=== PATIENT | female | born 1990 | race Caucasian/White ===

== ENCOUNTER 2017-10-29 12:05 | Emergency (ER) | payer OTHER ==
[~2017-10-29] VITALS: Ht 177.8 cm; Wt 77.1 kg
[2017-10-29 12:17] VITALS: BP 117/75
--- NOTE | 2017-10-29 13:58 | ED NECK/BACK PAIN COMPLAINT ---
History of Present Illness General Chief Complaint: Neck/Upper Back Pain/Injury Stated Complaint: NECK PAIN Source: patient Exam Limitations: no limitations Vital Signs & Intake/Output Vital Signs & Intake/Output Vital Signs Date Time Temp Pulse Resp B/P B/P Pulse O2 O2 Flow FiO2 Mean Ox Delivery Rate 10/29 1217 98.5 73 18 117/75 99 Room Air Allergies Coded Allergies: Sulfa (Sulfonamide Antibiotics) (ANAPHYLAXIS 10/29/17) Reconcile Medications Cyclobenzaprine HCl 10 MG TABLET 1 TAB PO QPM PRN MUSCLE RELAXOR Ketorolac Tromethamine 10 MG TABLET 1 TAB PO TID PRN PAIN RECEIVED IM IN ER Triage Note: PT TO ED C/O EXACERBATION OF CHRONIC LEFT SIDE NECK PAIN S/P WAKING UP WITH STIFF SORE NECK THIS AM. PAIN RADIATES DOWN TO LEFT SHOULDER. HAD CHEERLEADING INJURY 10 YRS, DENIES RECENT INJURY. TOOK 600 MG ADVIL AT 0930 WITH SOME RELIEF. HAS NUMBNESS TINGELING DOWN LEFT ARM WHICH "IS NOTHING NEW" Triage Nurses Notes Reviewed? yes Onset: Abrupt Duration: constant Timing: single episode today Location: paraspinous muscles Method of Injury: unknown Loss of Consciousness: no loss of consciousness : No Patient currently breastfeeds: No HPI: Patient is a 27-year-old female with a past medical history of chronic neck pain who presents emergency room stating that she woke up this morning with left lateral neck pain and stiffness and has associated symptoms of left arm paresthesia and pain. Patient has taken NSAIDS with no relief of symptoms. Patient denies any mechanism of injury or trauma denies any excessive physical activity yesterday prior to onset of symptoms. Denies any extremity swelling Past History Travel History Traveled to [place] past 21 day No Medical History Any Pertinent Medical History? none Neurological: NONE EENT: NONE Cardiovascular: NONE Respiratory: NONE Gastrointestinal: NONE Hepatic: NONE Renal: NONE Musculoskeletal: NONE Psychiatric: NONE Endocrine: NONE Surgical History Surgical History: non-contributory Psychosocial History What is your primary language Trinidadian Tobacco Use: Current Daily Use Daily Tobacco Use Amount/Type: => 5 Cigarettes daily ETOH Use: occasional use Illicit Drug Use: denies illicit drug use Family History Hx Contributory? No Review of Systems Review of Systems Constitutional: Reports: no symptoms. Eyes: Reports: no symptoms. Ears, Nose, Throat, Mouth: Reports: no symptoms. Respiratory: Reports: no symptoms. Cardiovascular: Reports: no symptoms. Gastrointestinal/Abdominal: Reports: no symptoms. Musculoskeletal: Reports: see HPI, muscle pain, muscle stiffness, neck pain. Skin: Reports: no symptoms. Neurological/Psychological: Reports: see HPI. All Other Systems: Reviewed and Negative Physical Exam Physical Exam General Appearance: no apparent distress, alert, awake Head: atraumatic Eyes: Bilateral: normal appearance. Ears, Nose, Throat, Mouth: moist mucous membrane Neck: normal inspection, supple, paraspinous muscle tender, stiff neck, tender lateral, no midline tenderness Respiratory: no respiratory distress Cardiovascular: regular rate/rhythm Extremities: non-tender, normal range of motion Neurologic/Psych: no motor/sensory deficits, awake, alert, oriented x 3, normal gait Skin: intact, normal color, warm/dry Comments: Extremities bilateral upper extremity and lower extremity myotomes dermatomes DTRs intact Core Measures CVA/TIA Diagnosis: No Progress Differential Diagnosis: C spine injury, carotid dissection, cauda equina syn, herniated disc, myofascial strain, pyelo/UTI, sciatica, spinal cord inj, thoracic outlet syn, T/L spine injury, ureterolithiasis Plan of Care: Due to history of present illness and exam findings patient has concerns of cervical radiculopathy concerns of dvt or spinal abscess or discitis patient denies any iv drug use Departure Departure Disposition: HOME OR SELF CARE Condition: Stable Clinical Impression Primary Impression: Cervical radiculopathy Referrals: Camryn Kyle MD (PCP/Family) Additional Instructions: As discussed begin ICING the area directly 20 minutes every 2 hours, begin the prescription of Toradol for pain AND THE prescription of cyclobenzaprine for muscle relaxation, if no better on Wednesday follow-up with her primary care doctor , prescriptions waiting and [facility]. If symptoms worsen return to emergency room Departure Forms: Customer Survey General Discharge Information Prescriptions: Current Visit Scripts Ketorolac Tromethamine 1 TAB PO TID PRN PAIN #15 TAB RECEIVED IM IN ER Cyclobenzaprine HCl 1 TAB PO QPM PRN MUSCLE RELAXOR #7 TAB
[2017-10-29] MEDS ORDERED: KETOROLAC TROME10 M1 PO (14:37)
[2017-10-29] MEDS ORDERED: CYCLOBENZAPRINE10 M1 PO (14:37)
== END 2017-10-29 14:50 ==
LOC: ERH 12:05
DX: M54.12 Radiculopathy, cervical region (principal)
CPT/HCPCS: 96372; J1885